=== PATIENT | male | born 1995 | race Caucasian/White ===

== ENCOUNTER 2020-06-09 09:19 | Emergency (ER) | payer BC ==
--- NOTE | 2020-06-09 10:00 | XRAY Report ---
PROCEDURE: Chest 1 View X-Ray INDICATIONS: chest pain TECHNIQUE: One view of the chest was acquired. COMPARISON: None FINDINGS: Surgical changes and devices: None. Lungs and pleura: No pleural effusions or pneumothorax. Lungs are clear. Mediastinum: Mediastinal contours appear normal. Heart size is normal. Bones and chest wall: No suspicious bony lesions. Overlying soft tissues appear unremarkable. IMPRESSION: No acute cardiopulmonary findings. Reviewed by: Patricia Self MD on 06/09/2020 9:59 AM PDT Approved by: Patricia Self MD on 06/09/2020 9:59 AM PDT Station ID: [id number]
[2020-06-09] MEDS ORDERED: diazePAM 5 MG TABLET PO STA (10:16)
--- NOTE | 2020-06-09 10:19 | ED Physician Documentation ---
History of Present Illness - Stated complaint Stated Complaint: CHEST PX - Chief complaint Chief Complaint: Cardiac - History obtained from History obtained from: Patient - Additonal information Additional information: Patient comes emergency department complaining of feeling a sense of chest tightness, palpitations, and anxiety for the last couple of days. He states that he cannot think of anything that would have caused him to feel anxious in particular. He states that he started a new job with [employer] back in November and has been working at home since. He has not been exercising much in [employer]. The patient states that he got all his work done before the weekend and feels like he has had a pretty relaxing weekend. He has no history of anxiety or panic disorder. No cardiac history. No history of DVT. He is not a smoker. The patient states he drinks 1 cup of coffee per day and no energy drinks or other caffeine source. The patient states that his grandfather had an NH in his older years and father had an NH at 50. No other cardiac history in the family. No other complaints at this time. Review of Systems Ten Systems: 10 systems reviewed and negative Constitutional: reports: Reviewed and negative Eyes: reports: Reviewed and negative Ears: reports: Reviewed and negative Nose: reports: Reviewed and negative Throat: reports: Reviewed and negative Cardiac: reports: Chest pain / pressure, Palpitations. denies: Pedal edema, Calf pain Respiratory: denies: Dyspnea, Cough GI: denies: Abdominal Pain, Nausea, Vomiting : reports: Reviewed and negative Skin: reports: Reviewed and negative Musculoskeletal: reports: Other (Muscle twitching) Neurologic: reports: Reviewed and negative Psychiatric: reports: Reviewed and negative Endocrine: reports: Reviewed and negative Immunocompromised: reports: Reviewed and negative PD PAST MEDICAL HISTORY - Present Medications Home Medications: Ambulatory Orders Medication Instructions Recorded Confirmed diazePAM [Valium] 5 mg PO TID PRN #15 tablet 06/09/20 - Allergies Allergies/Adverse Reactions: Allergies Allergy/AdvReac Type Severity Reaction Status Date / Time No Known Drug Allergies Allergy Verified 06/09/20 09:30 PD ED PE NORMAL - Vitals Vital signs reviewed: Yes - General General: Alert and oriented X 3, No acute distress (The patient appears slightly anxious but otherwise in no apparent distress.), Well developed/nourished - HEENT HEENT: Atraumatic, PERRL, EOMI, Moist mucous membranes - Neck Neck: Supple, no meningeal sign - Cardiac Cardiac: RRR, No murmur, Strong equal pulses, Other (No tachycardia) - Respiratory Respiratory: No respiratory distress, Clear bilaterally - Abdomen Abdomen: Soft, Non tender, Non distended - Back Back: Other (Grossly full range of motion) - Derm Derm: Normal color, Warm and dry, No rash - Extremities Extremities: No deformity, No edema, No calf tenderness / cord - Neuro Neuro: Alert and oriented X 3, milk sampler 2-12 intact, Normal speech, Other (Grossly normal) - Psych Psych: Normal affect, Other (Mildly anxious, otherwise normal) Results - Vitals Vitals: Vital Signs - 24 hr 06/09/20 06/09/20 06/09/20 09:24 10:00 11:00 Temperature 37.1 C Heart Rate 108 H 86 81 Respiratory 16 21 19 Rate Blood Pressure 135/85 H 107/72 122/75 O2 Saturation 99 99 99 06/09/20 11:57 Temperature Heart Rate 85 Respiratory 14 Rate Blood Pressure 120/68 O2 Saturation 100 Oxygen O2 Source Room air - EKG (time done) 0929 Rate: Rate (enter#) (89) Rhythm: NSR, AMANDA (possible) [place]: Normal Intervals: Normal VT QRS: Normal Ischemia: Normal ST segments, Non specific changes Compare to prior EKG: Old EKG unavailable Computer interpretation: Agree with computer - Labs Labs: Laboratory Tests 06/09/20 06/09/20 10:19 10:19 Sodium 141 Potassium 3.7 Chloride 103 Carbon Dioxide 27 Anion Gap 11.0 BUN 11 Creatinine 0.8 Estimated GFR (MDRD) 118 Glucose 98 Calcium 9.3 TSH 1.10 - Rads (name of study) CXR Radiology: Final report received, EMP read indepedently, See rad report (neg) PD MEDICAL DECISION MAKING - ED course Complexity details: reviewed results, re-evaluated patient, considered differential, d/w patient ED course: The patient was worked up in the emergency department labs, EKG, and chest x- ray, all of which were unremarkable. He actually looked reasonably good, though he did seem to be anxious. His vital signs were normal. He was given a dose of Valium orally. The pt was feeling better on re-evaluation. It was discussed with the pt that no emergent cause of his sx has been found. I will give the pt a small prescription for Valium for anxiety at home. However, he is to follow up as soon as possible with his PCP to come up with a good long-term plan. Departure - Departure Disposition: Home, Self Care Clinical Impression: Anxiety, Palpitations with regular cardiac rhythm Chest pain Qualifiers: Chest pain type: unspecified Qualified Code(s): R07.9 - Chest pain, unspecified Condition: Stable Instructions: ED Chest Pain NonCardiac, ED Panic Attack Prescriptions: diazePAM [Valium] 5 mg PO TID PRN #15 tablet PRN Reason: Anxiety Comments: Your labs and EKG look very good. Your chest x-ray is normal. [place] cause of your symptoms is anxiety, given that you are extremely low risk for any other cardiac issues and there is no evidence on specific testing to indicate a more serious problem. You may take the medication for anxiety as needed, but is very important that you follow-up with your primary care physician to discuss a good long-term plan for management of this. Discharge Date/Time: 06/09/20 11:58
[2020-06-09 10:29] LABS: CALCIUM 9.3 mg/dL (8.5-10.3); CREATININE 0.8 mg/dL (0.6-1.2)
[2020-06-09 11:58] VITALS: BP 120/68
== END 2020-06-09 11:58 | disposition home or self-care (01) ==
LOC: ED 09:19
DX: F41.9 Anxiety disorder, unspecified (principal); R00.2 Palpitations
CPT/HCPCS: 36415; 71045; 80048; 84443; 93005; 99283; 99284; A9270